=== PATIENT | male | born 2000 | race Caucasian/White ===

== ENCOUNTER 2024-01-09 15:13 | Emergency (ER) | payer OTHER, SELFPAY ==
[2024-01-09 15:20] VITALS: BP 150/82
[2024-01-09 17:57] LABS: Urine Albumin Negative (Neg - Trace); Urine Bilirubin Negative (Negative); Urine Character Clear (Clear); Urine Color Straw; Urine Glucose Negative (Negative); Urine Ketone Negative (Negative); Urine Leukocyte Trace (Negative); Urine Nitrite Negative (Negative); Urine Occult Blood Negative (Negative); Urine Urobilinogen Negative (Neg - 1+)
[2024-01-09 18:27] LABS: Urine Squamous Cell 0-2 /LPF (Few)
[2024-01-09 18:28] LABS: Urine Bacteria Few (Negative); Urine Red Blood Cell 0-2 /HPF (0-2); Urine White Cell 0-2 /HPF (0-5)
--- NOTE | 2024-01-09 19:01 | ED.GENMED ---
History of Present Illness
General
Chief Complaint: Abdominal Pain
Source: patient
Time Seen by Provider: 01/09/24 16:56
Travel History
Have you had any contact with someone who has COVID-19?: No
Do you have any symptoms of coronavirus? Fever > 100 degrees, chills, cough, shortness of breath, sore throat, loss of taste or smell, muscle aches, or headache?: No
History of Present Illness
History of Present Illness:
23-year-old male with no significant past medical history presenting emergency department for evaluation of intermittent right-sided testicular pain that has been off and on for the last few years, since yesterday pain has been a little bit more
prominent prompting him to come to the ER today for further evaluation. He states that when symptoms started few years ago he noticed that his right testicle was lying more horizontal and after turning the testicle the pain seem to have resolved
but states that at nighttime when he lays in a certain position the pain will return. He notes that he was recently treated for a genital herpes outbreak from the 1 partner that he has been sexually active with. He notes that he was tested for
gonorrhea and chlamydia which were negative. He reports taking Valtrex with resolution of symptoms. He denies any fevers, chills, rigors, back or flank pain, nausea, vomiting. He is currently pain-free.
Past History
Past History
ED Past Medical History: None
ED Past Surgical History: Other (hernia repair)
Social History
Tobacco: Non-smoker
Alcohol: None
Drug: None
Personal: Single
Living: with family
Review of Systems
Review of Systems
All Other Systems: ROS reviewed and negative except as documented in HPI and ROS
Phy Exam
Physical Exam
Physical Exam:
GENERAL: Alert , in no apparent distress
EYE: conjunctiva clear
Head: Normocephalic atraumatic
NECK: Supple,
ENT: mmm.
LUNGS: no acute respiratory distress
Abdomen: Soft, nontender, nondistended, no flank tenderness
Genitourinary: Scab at the base of the penile shaft with no vesicular eruptions. Erythematous base. No urethral discharge. Normal testicular lie, positive cremasteric reflex bilaterally, no focal tenderness, no varicocele or hydrocele identified
NEUROLOGICAL: Alert and oriented
SKIN: Warm and dry, skin intact.
MUSCULOSKELETAL: well perfused.
PSYCH: Normal and appropriate interaction.
Scores
Heart Failure Risk
Heart Failure Risk Score: Not Applicable
Heart Score for Chest Pain Patients
STEMI patient?: Not applicable
Withdrawal Assessment of Alcohol
Withdrawal Assessment Completed?: Not applicable
Course
Orders/Labs/Results
Orders:
Orders
01/09/24 16:56
US Scrotum Urgent
Comment:
Reason For Exam: right sided testicular pain
01/09/24 17:48
Urinalysis Reflex To Culture Urgent
Date Specimen was Collected: 01/09/24
Time Specimen was Collected: 17:47
Urine Microscopic Reflex Cult Urgent
Chlamydia/GC by PCR Urgent
NAVID Source: Urine
Specimen Description:
Source:: URINE
Date Specimen was Collected: 01/09/24
Time Specimen was Collected: 17:47
Abnormal Lab Results
01/09/24
17:48
Leukocyte Esterase Rfl Trace A
(Negative)
Urine Bacteria (Reflex) Few A
(Negative)
Vital Signs
Initial and Last Documented VS:
Initial Vital Signs
Temp Pulse Resp BP Pulse Ox
98.9 F 73 16 150/82 98
01/09/24 15:20 01/09/24 15:20 01/09/24 15:20 01/09/24 15:20 01/09/24 15:20
Last Documented Vital Signs
Temp Pulse Resp BP Pulse Ox
98.9 F 73 16 150/82 98
01/09/24 15:20 01/09/24 15:20 01/09/24 15:20 01/09/24 15:20 01/09/24 15:20
MDM/Problems Addressed
Differential Diagnosis Includes:
Intermittent torsion, epididymitis, STI, epididymal cyst
MDM/Problems Addressed:
23-year-old male presenting emergency department for evaluation of intermittent right-sided testicular pain. This pain has been ongoing for quite a while however symptoms seem to be more persistent today which is why patient came to the ER for
further evaluation. Currently pain-free. Reassuring exam. Will obtain ultrasound, urine and GC/chlamydia for further evaluation. Anticipate need for close urology follow-up as patient may need orchiopexy given his reported history.
*Radiology
Radiology exam reviewed: radiology read reviewed
*Pulse Oximetry
Patient hypoxic: no
*Critical Care Note
Total Time (30-74mins, 75-104mins- exclusive of procedures): Not Applicable
Patient Management
Escalation/DeEscalation of care consider admission/obs:
Patient's ultrasound shows bilateral hydroceles. Given the ultrasound findings are bilateral patient's symptoms are only on the right I have more suspicion that pain could be related to intermittent torsion. Currently pain-free. Ultimately I
strongly encourage patient to closely follow-up urology. We discussed return precautions for torsion. Patient expressed understanding. Stable for discharge home.
ED Attending Note
-
Portions of this chart may have been created with voice recognition software.� Occasional wrong word or��sound alike� substitutions may have occurred due to the inherent limitations of voice recognition software.
Discharge Plan
Departure
Patient Disposition: Home (Routine Discharge)
Date of Disposition: 01/09/24
Time of Disposition: 19:10
Patient with high blood pressure during this ER visit?: Yes
Discharge Problem:
Bilateral hydrocele
Instructions: Hydrocele/Varicocele (DC)
Referrals:
John Paul Butterfield MD [Active] - (Urology)
UNKNOWN - PT NOT,INTERVIEWE [Family Provider] -
Interventions
Interventions:
*Risk Screen - Suicide Last Done: 01/09/24 19:14
*General Assessment Last Done: 01/09/24 15:20
*Neglect/Abuse Screening Last Done: 01/09/24 19:14
ED- Fall Risk Assessment Last Done: 01/09/24 18:59
*ED COVID-19 Vaccine History Last Done: 01/09/24 15:20
*Nursing Disposition Last Done: 01/09/24 19:18
SD-Fgwthu-Xjuonpfsyr Assessment Last Done: 01/09/24 18:59
Discharge Date and Time
Discharge Date/Time: 01/09/24 19:19
Print Language: NIGERIAN
== END 2024-01-09 19:19 | disposition home or self-care (01) ==
LOC: EMR 15:13
PROVIDERS: Physician Assistant Medical; EMERGENCY PHYSICIAN Emergency Medicine
DX: N43.3 Hydrocele, unspecified (principal); L53.9 Erythematous condition, unspecified; R03.0 Elevated blood-pressure reading, without diagnosis of hypertension; Z87.438 Personal history of other diseases of male genital organs
CPT/HCPCS: 99284; 76870; 81003; 81015; 87491; 87591; 93976

== ENCOUNTER 2025-06-24 14:48 | Emergency (ER) | payer OTHER, SELFPAY ==
[2025-06-24 14:53] VITALS: BP 136/73
[2025-06-24] MEDS: DECADRON 10 MG PO (15:41)
--- NOTE | 2025-06-24 18:44 | ED.GENMED ---
History of Present Illness
General
Chief Complaint: Throat Problem
Source: patient
Exam Limitations: none
Time Seen by Provider: 06/24/25 15:09
Nursing documentation reviewed up to this point in time: agreed with
History of Present Illness
History of Present Illness:
see MDM
Past History
Past History
ED Past Medical History: Other (frequent strep throat)
ED Past Surgical History: Other (hernia repair)
Social History
Tobacco: Non-smoker
Alcohol: None
Drug: None
Personal: Single
Living: with family
Review of Systems
Review of Systems
Allergies reviewed?: Yes
All Other Systems: Not applicable
Phy Exam
Physical Exam
Physical Exam:
see MDM
Course
Orders/Labs/Results
Orders:
Orders
06/24/25 15:36
Dexamethasone [Decadron] 10 mg PO NOW STA
Vital Signs
Initial and Last Documented VS:
Initial Vital Signs
Temp Pulse Resp BP Pulse Ox
36.7 C 90 20 136/73 99
06/24/25 14:53 06/24/25 14:53 06/24/25 14:53 06/24/25 14:53 06/24/25 14:53
Last Documented Vital Signs
Temp Pulse Resp BP Pulse Ox
36.7 C 90 20 136/73 99
06/24/25 14:53 06/24/25 14:53 06/24/25 14:53 06/24/25 14:53 06/24/25 14:53
MDM/Problems Addressed
Differential Diagnosis Includes:
see4 MDM
MDM/Problems Addressed:
Note:
CHIEF COMPLAINT(S)
Recurrent sore throat; persistent throat pain despite antibiotics.
HISTORY OF PRESENT ILLNESS
The [id number] y/o a male, reports having recurrent sore throats for the past couple of years, which seem to reoccur every few months. The most recent episode began on , when he first tested positive for strep throat. Prior to
this, he had experienced general sickness symptoms. The patient was initially prescribed Amoxicillin 875 mg twice daily which he took until May 21. However, he reported that his sore throat only worsened, with the appearance of white patches
on his tonsils.
On May 21, after another positive test for strep, his medication was changed to Clindamycin, 300 mg twice daily. He started the regimen on May 21 and had taken it for three days by the time of the visit. He describes the pain as constant
and aggravated by swallowing, noting that it felt like 'swallowing razor blades.' The use of ibuprofen has been necessary to manage the pain, but without it, the pain becomes unbearable. The patient also reports experiencing night sweats, but not a
significant fever since starting Clindamycin.
He has been able to swallow liquids.
no vomitnig
no abd pain
no cough
PHYSICAL EXAM
GENERAL: Alert , in no apparent distress
EYE: pupils equal and reactive
NECK: Supple
ENT: b/l TM s clear, mild pharynx erythematous but no tonsillar hypertrophy or exudates, normal phonation
CARDIAC: Regular rate and rhythm, no edema
LUNGS: Clear breath sounds bilaterally, no acute respiratory distress, no wheezes/rales/rhonchi, occ cough
ABDOMEN: Soft, without focal tenderness, no r/g, no cvat, normal bowel sounds
NEUROLOGICAL: Alert and oriented, no focal neuro deficits
SKIN: Warm and dry, skin intact.
MUSCULOSKELETAL: No edema, well perfused.
PSYCH: Normal and appropriate interaction.
- Review of nursing notes and vital signs undertaken.
PROBLEM LIST
Acute Problems:
- Recurrent streptococcal pharyngitis
PLAN
1. Increase Clindamycin dosage to 300 mg four times per day for the next seven days. Prescribe 20 additional tablets.
2. Administer a dose of Dexamethasone to help reduce inflammation.
3. Advise the patient to take a probiotic to prevent gastrointestinal issues associated with antibiotic use.
DIFFERENTIAL DIAGNOSIS
The Differential Diagnosis includes, in no particular order and is not limited to:
- Recurrent streptococcal pharyngitis
- Chronic tonsillitis
- Viral pharyngitis
- Maciej-Rodriguez virus (Mononucleosis)
- Peritonsillar abscess
- Deep neck space infection
- Allergic rhinitis with postnasal drip
- Gastroesophageal reflux disease (GERD)
- Non-streptococcal bacterial infection
25 y/o M
frequent strep
here with sore thraot despite abx
started 2 weeks ago
went to on 06/15 with a efw days of sore throat, fever
tested pos for strep
amox 875 bid
took that for 5 days
wetn back due to worsening sore throat, exudate
still tested pos for stre[p
changed to clinda 300 mg bid
has been taking motrin
no fever
able to swallow
normal voice
no neck stwelling
no vomiting or rash
but he still has symtpoms
on exam miniaml erythema
pt looks well
no signs of CONTENT CURATOR, RPA
did not feel any additional testing necessary
will treat with clinda continued but QID
and decadron for pain
*Pulse Oximetry
SaO2: 99
Oxygen Mode of Delivery: Room air
Patient hypoxic: no (99)
*Critical Care Note
Total Time (30-74mins, 75-104mins- exclusive of procedures): Not Applicable
ED Attending Note
-
Portions of this chart may have been created with voice recognition software.� Occasional wrong word or��sound alike� substitutions may have occurred due to the inherent limitations of voice recognition software.
Discharge Plan
Departure
Patient Disposition: Home (Routine Discharge)
Date of Disposition: 06/24/25
Time of Disposition: 15:53
Patient with high blood pressure during this ER visit?: No
Condition: Fair
Covid-19: Not Applicable
Discharge Problem:
Pharyngitis
Instructions: Strep Throat (DC)
Prescriptions:
New
clindamycin HCl [Cleocin HCl] 300 mg capsule
300 mg PO Q6H Qty: 28 0RF
Referrals:
Eugenio Song MD [Family Provider, [facility]]
Activity Restrictions/Additional Instructions:
You can increase your clindamycin to 4 times a day for the next 7 days. You were given a dose of Decadron today to help with your symptoms. This last for 48 hours and is a steroid. You can continue Tylenol and ibuprofen for pain. Drink plenty of
fluids.
Return for inability to swallow, voice change, drooling, hot potato voice, severe pain, high fever, shaking chills, rash etc.
Take a probiotic
Interventions
Interventions:
*Risk Screen - Suicide Last Done: 06/24/25 15:20
*General Assessment Last Done: 06/24/25 14:53
*ED- Fall Risk Assessment Last Done: 06/24/25 15:20
*Nursing Disposition Last Done: 06/24/25 16:07
ED-EENT Assessment Last Done: 06/24/25 15:20
ED- Pulmonary Assessment Last Done: 06/24/25 15:20
Discharge Date and Time
Discharge Date/Time: 06/24/25 16:07
Print Language: RUSSIAN
== END 2025-06-24 16:07 | disposition home or self-care (01) ==
LOC: EMR 14:48
PROVIDERS: EMERGENCY PHYSICIAN Emergency Medicine; FAMILY PHYSICIAN Family Medicine
DX: J02.9 Acute pharyngitis, unspecified (principal)
CPT/HCPCS: 99283